=== PATIENT | male | born 1955 | race Caucasian/White ===

== ENCOUNTER → 2018-12-19 | Outpatient (CLI) | payer OTHER ==
[~2018-12-19] VITALS: Ht 172 cm; Wt 86.0 kg
[~2018-12-19] MED LIST: ASPI-983 PO; ASPI-992 PO; ATOR40TA PO; CATHETER FLUSH 10 ML SYR IV PRN; CLOP75TA28 PO; HYDR1TAB PO; LISI-552 PO; LISI10TA2 PO; METO-387 PO; REGADENOSON 0.4 MG/5 ML SYR (LEXISCAN) IV ONE
[2018-12-19 09:38] VITALS: BP 127/83
--- NOTE | 2018-12-19 16:23 | STRESS TEST ---
DATE OF SERVICE: RESTING AND POST REGADENOSON TECHNETIUM-99M TETROFOSMIN SPECT CT IMAGING ORDERING PHYSICIAN: Sherita Arriaga APRN PRIMARY PHYSICIAN: Dr. Sanchez. OTHER PHYSICIAN: Dr. Lerner. CLINICAL DIAGNOSIS: Coronary artery disease. Baseline images were carried out after injection of 10.92 mCi of technetium-99m Tetrofosmin. This was followed by 0.4 mg Regadenoson and 29.5 mCi of technetium-99m Tetrofosmin for stress imaging. The electrocardiogram showed sinus rhythm at baseline. It did not change significantly with the Regadenoson infusion. The patient tolerated the procedure well. Review of images at rest and following stress does not indicate any significant perfusion defects consistent with significant myocardial ischemia or infarction. Gated images show normal global left ventricular systolic function with normal regional wall motion. Left ventricular ejection fraction is calculated to be 55%. Left ventricular end diastolic volume is 82 mL. TID is absent (1.09). CONCLUSIONS: 1. No evidence of significant myocardial ischemia or infarction on this study. 2. Normal regional wall motion. 3. Normal global left ventricular systolic function with a calculated ejection fraction of 55%. Job ID: [id number] DocumentID: [id number] Dictated Date: 12/19/2018 13:53:00 Senior Applications Engineer Date: 12/19/2018 16:22:34 Dictated By: SARAHI LERNER MD, MA, FACP, FACC,
== END ==
LOC: CARD 07:59
PROVIDERS: ATTEND Nurse Practitioner Family
DX: I25.10 Atherosclerotic heart disease of native coronary artery without angina pectoris (principal); I77.9 Disorder of arteries and arterioles, unspecified; E78.5 Hyperlipidemia, unspecified; I10 Essential (primary) hypertension
CPT/HCPCS: 78452; 93017

== ENCOUNTER 2021-06-15 05:31 | Outpatient (CLI) | payer OTHER ==
[~2021-06-15] VITALS: Ht 175.3 cm; Wt 83.6 kg
[~2021-06-15 05:31] MED LIST changes: +ASPI-1238 PO; -ASPI-983 PO; -CATHETER FLUSH 10 ML SYR IV PRN; -LISI-552 PO; -LISI10TA2 PO; +LISI10TA25 PO; +LISI20TA26 PO; -METO-387 PO; +MTP25TSR PO; -REGADENOSON 0.4 MG/5 ML SYR (LEXISCAN) IV ONE
[2021-06-15] MEDS ORDERED: PHEN37.58 PO (10:20)
== END 2021-06-15 10:28 ==
LOC: PREOP 05:31
PROVIDERS: ATTEND Otolaryngology Otolaryngology/Facial Plastic Surgery
DX: Z01.818 Encounter for other preprocedural examination (principal)

== ENCOUNTER 2021-06-19 06:48 | Day surgery (SDC) | payer OTHER ==
[~2021-06-19] VITALS: Ht 175.3 cm; Wt 83.6 kg
[2021-06-19] VITALS (11 sets, daily range): BP systolic 94–135; BP diastolic 60–88
[~2021-06-19 06:48] MED LIST changes: +PHEN37.58 PO
[2021-06-19] MEDS ORDERED: LACTATED RINGERS 1,000 ML IV PRN (07:30)
[2021-06-19 07:35] LABS: BASOPHILS # (AUTO) 0.1 10^3/uL (0.0-0.1); BASOPHILS % (AUTO) 1 % (0-10); EOSINOPHILS # (AUTO) 0.3 10^3/uL (0.0-0.3); EOSINOPHILS % (AUTO) 4 % (0-10); HEMATOCRIT 47 % (40-54); HEMOGLOBIN 15.1 g/dL (13.3-17.7); LYMPHOCYTES # (AUTO) 2.7 10^3/uL (1.0-4.0); LYMPHOCYTES % (AUTO) 31 % (12-44); MEAN CORPUSCULAR HEMOGLOBIN 26 pg (25-34); MEAN CORPUSCULAR HGB CONC 32 g/dL (32-36); MEAN CORPUSCULAR VOLUME 81 fL (80-99); MEAN PLATELET VOLUME 8.1 fL (9.0-12.2); MONOCYTES # (AUTO) 0.9 10^3/uL (0.0-1.0); MONOCYTES % (AUTO) 10 % (0-12); NEUTROPHILS # (AUTO) 4.7 10^3/uL (1.8-7.8); NEUTROPHILS % (AUTO) 55 % (42-75); PLATELET COUNT 285 10^3/uL (130-400); WHITE BLOOD COUNT 8.6 10^3/uL (4.3-11.0)
[2021-06-19 07:44] LABS: POTASSIUM 3.9 MMOL/L (3.6-5.0)
[2021-06-19 07:45] LABS: CALCIUM 8.8 MG/DL (8.5-10.1)
[2021-06-19] MEDS ORDERED: MUPIROCIN 2% OINT 22 GM (BACTROBAN) TUBE ONE (07:46)
[2021-06-19] MEDS ORDERED: BSS 15 ML ONE (07:46)
[2021-06-19] MEDS ORDERED: LIDOCAINE/EPI 2% 1:100,00 (XYLOCAINE) 20 ML VIAL ONE (07:46)
[2021-06-19 07:50] LABS: CREATININE SERUM 0.88 MG/DL (0.60-1.30)
[2021-06-19] MEDS ORDERED: ONDANSETRON 4 MG/2 ML (SDV) Z0FRAN ONE (08:02)
[2021-06-19] MEDS ORDERED: LIDOCAINE PF 2% 5 ML (XYLOCAINE) VIAL ONE (08:02)
[2021-06-19] MEDS ORDERED: fentaNYL INJ 100 MCG/2 ML AMP ONE (08:02)
[2021-06-19] MEDS ORDERED: proPOfol 200 MG/20 ML (DIPRIVAN) VIAL IV ONE (08:02)
--- NOTE | 2021-06-19 08:15 | Progress Note-Pre Operative ---
Pre-Operative Progress Note H&P Reviewed The H&P was reviewed, patient examined and no changes noted. Date Seen by Provider: Jun 19, 2021 Time Seen by Provider: :30 Date H&P Reviewed: Jun 19, 2021 Time H&P Reviewed: 07:30 Pre-Operative Diagnosis: Right Nasal Tip Lesion TERRI VEE MD Jun 19, 2021 08:15
[2021-06-19] MEDS ORDERED: PHENYLEPHRINE 100 MCG/ML 10 ML (ANESTHESIA) SYR ONE (08:30)
--- NOTE | 2021-06-19 08:43 | Progress Note-Post Operative ---
Post-Operative Progess Note Surgeon (s)/Certified Detention Deputy (s) Surgeon TERRI VEE MD Certified Detention Deputy n/a Pre-Operative Diagnosis Right Nasal Tip Lesion Post-Operative Diagnosis same Post-Op Procedure Note Date of Procedure: Jun 19, 2021 Name of Procedure Performed: Excision of Right Nasal Tip Lesion with INtermediate Repair Description & Findings Description and Findings: n/a Anesthesia Type get Estimated Blood Loss minimal Packing none. Specimen(s) collected/removed right nasal tip lesion TERRI VEE MD Jun 19, 2021 08:43
[2021-06-19] MEDS ORDERED: HYDROcodone/APAP 5 MG/325 MG (LORTAB) TAB PO PRN (08:45)
[2021-06-19] MEDS ORDERED: ACETAMINOPHEN 325 MG TABLET PO PRN (08:45)
--- NOTE | 2021-06-19 09:25 | Anesthesia-General Post-Op ---
General Patient Condition Mental Status/LOC: Same as Preop Cardiovascular: Satisfactory Nausea/Vomiting: Absent Respiratory: Satisfactory Pain: Controlled Complications: Absent Post Op Complications Complications None Follow Up Care/Instructions Patient Instructions None needed. Anesthesia/Patient Condition Patient Condition Patient is doing well, no complaints, stable vital signs, no apparent adverse anesthesia problems. No complications reported per nursing. SAILAJA YUAN CRNA Jun 19, 2021 09:25
[2021-06-19] MEDS ORDERED: SEVOFLURANE (ULTANE) 15 ML INHAL SOLN ONE (09:28)
[2021-06-19] MEDS ORDERED: fentaNYL INJ 100 MCG/2 ML AMP IVP ONE (09:30)
[2021-06-19] MEDS ORDERED: ONDANSETRON 4 MG/2 ML (SDV) Z0FRAN IVP PRN (09:30)
[2021-06-19] MEDS ORDERED: CEPH500T PO (10:10)
[2021-06-19] MEDS ORDERED: ACHD5005 PO (10:10)
== END 2021-06-19 11:00 ==
LOC: SDC 06:48
PROVIDERS: ATTEND Otolaryngology Otolaryngology/Facial Plastic Surgery
DX: C44.311 Basal cell carcinoma of skin of nose (principal)
CPT/HCPCS: 36415; 80048; 85025; 87081; 88305

== ENCOUNTER → 2022-10-12 | Outpatient (CLI) | payer OTHER ==
[~2022-10-12] MED LIST changes: +ACHD5005 PO; +CATHETER FLUSH 10 ML SYR IVP PRN; +CEPH500T PO; +REGADENOSON 0.4 MG/5 ML SYR (LEXISCAN) IV ONE
[2022-10-12 12:55] VITALS: BP 123/81
--- NOTE | 2022-10-13 13:58 | STRESS TEST ---
DATE OF SERVICE: 10/12/2022 RESTING AND POST REGADENOSON TECHNETIUM-99M TETROFOSMIN SPECT CT IMAGING ORDERING PHYSICIAN: Sherita Arriaga APRN. PRIMARY PHYSICIAN: Dr. Sanchez. CLINICAL DIAGNOSIS: Coronary artery disease. Baseline images were carried out after injection of 10.96 mCi of technetium-99m tetrofosmin. This was followed by 0.4 mg regadenoson and 30.3 mCi technetium-99m tetrofosmin for stress imaging. The electrocardiogram showed sinus rhythm at baseline. It did not change significantly with the regadenoson infusion. The patient noted a headache and nausea following regadenoson infusion, which resolved in a few minutes. Review of images at rest and following stress does not indicate any distinct perfusion defects consistent with significant myocardial ischemia or infarction. Some degree of diaphragmatic attenuation is seen both at rest and following regadenoson infusion. Gated images show normal global left ventricular systolic function and normal regional wall motion, including the diaphragmatic wall of the left ventricle. Left ventricular ejection fraction is calculated to be 67%. CONCLUSIONS: 1. No evidence of any significant myocardial ischemia or infarction on this study. 2. Normal regional wall motion. 3. Normal global left ventricular systolic function with a calculated ejection fraction 67%. Job ID: [id number] DocumentID: [id number] Dictated Date: 10/13/2022 12:55:14 Cleater Date: 10/13/2022 13:56:00 Dictated By: SARAHI LERNER MD; MA; FACP; FACC;
== END ==
LOC: CARD 10:57
PROVIDERS: ATTEND Nurse Practitioner Family
DX: I25.10 Atherosclerotic heart disease of native coronary artery without angina pectoris (principal)
CPT/HCPCS: 78452; 93017; A9502

== ENCOUNTER 2023-01-10 11:29 | Outpatient (RCR) | payer OTHER ==
[~2023-01-10 11:29] MED LIST changes: -CATHETER FLUSH 10 ML SYR IVP PRN; -REGADENOSON 0.4 MG/5 ML SYR (LEXISCAN) IV ONE
== END 2023-01-11 | disposition home or self-care (01) ==
PROVIDERS: ATTEND Internal Medicine
DX: M67.813 Other specified disorders of tendon, right shoulder (principal)

== ENCOUNTER 2023-01-13 11:05 | Outpatient (RCR) | payer OTHER | END 2023-01-13 12:14 | disposition home or self-care (01) | PROVIDERS: ATTEND Internal Medicine | DX: M67.813 Other specified disorders of tendon, right shoulder (principal); I10 Essential (primary) hypertension ==